=== PATIENT | female | born 1945 | race African-American/Black ===

== ENCOUNTER 2022-04-24 07:10 | Inpatient (IN) | payer BC, MEDICAID ==
[~2022-04-24] VITALS: Ht 157.5 cm; Wt 75.3 kg
[2022-04-24] MEDS ORDERED: MORPHINE SULFATE 4 MG/ML CPJ (NOT FOR IM USE) IV STA (08:11)
[2022-04-24] MEDS ORDERED: ONDANSETRON HCL 4MG/2ML INJ IV STA (08:11)
[2022-04-24] MEDS ORDERED: SODIUM CHLORIDE 0.9% 1,000 ML IV ONE (08:15)
[2022-04-24 09:26] LABS: CHLORIDE 110 mEq/L (98-107)
[2022-04-24 09:35] LABS: BASOPHILS % 0.6 % (0.0-2.0); EOSINOPHILS % 0.9 % (0.0-5.0); HEMATOCRIT. 39.8 % (36.0-48.0); HEMOGLOBIN. 12.8 g/dL (12.0-16.0); LYMPHOCYTES % 34.1 % (20.0-50.0); MEAN CORPUSCULAR HEMOGLOBIN 30.5 pg (28.0-32.0); MEAN CORPUSCULAR VOLUME 94.5 fL (81.0-99.0); MEAN PLATELET VOLUME 8.6 fl (7.4-10.4); MONOCYTES % 8.8 % (2.0-8.0); NEUTROPHILS % 55.6 % (40.0-76.0); PLATELET 234 x1000/uL (130-400); RED BLOOD CELL COUNT 4.22 mill/uL (4.2-5.4)
[2022-04-24] MEDS ORDERED: ONDANSETRON HCL 4MG/2ML INJ IV SCH (10:40)
[2022-04-24] MEDS: MORPHINE SULFATE 4 MG/ML CPJ (NOT FOR IM USE) IV SCH ×2 (10:56→12:06)
[2022-04-24] MEDS ORDERED: POLYETHYLENE GLYCOL 3350 (17GM) 1 DOSE PACK PO ONE (11:45)
[2022-04-24] MEDS ORDERED: CEFTRIAXONE 1 G PREMIX 50 ML IV ONE (11:45)
[2022-04-24 12:48] LABS: CLARITY URINE CLOUDY (CLEAR); COLOR URINE YELLOW (YELLOW); KETONES URINE NEGATIVE (NEGATIVE); LEUKOCYTE ESTERASE URINE TRACE (NEGATIVE); NITRITE URINE NEGATIVE (NEGATIVE); OCCULT BLOOD URINE NEGATIVE (NEGATIVE); PROTEIN URINE NEGATIVE (NEGATIVE); SPECIFIC GRAVITY URINE 1.023 (1.005-1.030)
[2022-04-24 16:30] VITALS: BP 184/92
[2022-04-24] MEDS ORDERED: LACTULOSE 20G/30ML UDC PO ONE (17:30)
[2022-04-24] MEDS ORDERED: ONDANSETRON HCL 4MG/2ML INJ IV PRN (17:30)
[2022-04-24] MEDS: CLONIDINE 0.1MG TABLET PO PRN (18:10)
[2022-04-24] MEDS: ACETAMINOPHEN 325MG TABLET PO PRN ×2 (18:10→23:58)
[2022-04-24 20:00] VITALS: BP 119/73
[2022-04-24] MEDS: BENAZEPRIL 10MG TABLET PO SCH (20:44)
[2022-04-25] VITALS: BP 176/89
[2022-04-25] MEDS: CLONIDINE 0.1MG TABLET PO PRN (03:40)
[2022-04-25 04:00] VITALS: BP 201/106
[2022-04-25] MEDS ORDERED: BENA-8 PO (04:41)
[2022-04-25] MEDS ORDERED: CLON1PAT10 TP (04:41)
[2022-04-25] MEDS ORDERED: METO-396 PO (04:41)
[2022-04-25] MEDS ORDERED: HYDRALAZINE 20MG/ML VIAL IV PRN (04:45)
[2022-04-25 08:00] VITALS: BP 153/88
[2022-04-25] MEDS ORDERED: METOPROLOL SUCCINATE 50MG ER TABLET PO SCH (09:00)
[2022-04-25] MEDS: BENAZEPRIL 10MG TABLET PO SCH (09:35)
[2022-04-25] MEDS ORDERED: HYDRALAZINE HCL 50MG TABLET PO NR (11:45)
[2022-04-25 12:00] VITALS: BP 167/85
[2022-04-25] MEDS: ACETAMINOPHEN 325MG TABLET PO PRN (14:34)
[2022-04-25 16:00] VITALS: BP 120/66
[2022-04-25] MEDS ORDERED: ENOXAPARIN 40MG/0.4ML SYR SUBCUT SCH (17:00)
[2022-04-25] MEDS: DOCUSATE SODIUM 100MG CAPSULE PO SCH (18:14)
[2022-04-25 20:00] VITALS: BP 129/81
[2022-04-25] MEDS: HYDRALAZINE HCL 50MG TABLET PO SCH (20:50)
[2022-04-25] MEDS: METOPROLOL TARTRATE 50MG TABLET PO SCH (20:50)
[2022-04-25] MEDS ORDERED: HYDRALAZINE HCL 100MG TABLET PO SCH (21:00)
[2022-04-26] VITALS: BP 118/60
[2022-04-26] MEDS: ACETAMINOPHEN 325MG TABLET PO PRN ×2 (01:09→11:16)
[2022-04-26 04:00] VITALS: BP 189/102
[2022-04-26] MEDS: CLONIDINE 0.1MG TABLET PO PRN ×2 (04:54→12:30)
[2022-04-26 06:39] LABS: PROTHROMBIN TIME 10.4 sec (9.6-11.0)
[2022-04-26 07:44] LABS: VITAMIN B12 SERUM 353 pg/mL (211-911)
[2022-04-26 08:00] VITALS: BP 163/103
[2022-04-26] MEDS: DOCUSATE SODIUM 100MG CAPSULE PO SCH ×2 (09:36→18:07)
[2022-04-26] MEDS: HYDRALAZINE HCL 50MG TABLET PO SCH ×2 (09:36→20:31)
[2022-04-26] MEDS: METOPROLOL TARTRATE 50MG TABLET PO SCH ×2 (09:37→20:31)
[2022-04-26] MEDS: POLYETHYLENE GLYCOL 3350 (17GM) 1 DOSE PACK PO SCH (09:43)
[2022-04-26] MEDS: BENAZEPRIL 10MG TABLET PO SCH (09:43)
[2022-04-26] MEDS ORDERED: HYDR-4001 MT (11:28)
[2022-04-26] MEDS ORDERED: NALOXONE HCL 0.4MG/ML VIAL IV PRN (11:45)
[2022-04-26 12:00] VITALS: BP 176/105
[2022-04-26] MEDS: HYDROCODONE/ACETAMINOPHEN 5/325MG TABLET PO PRN ×2 (12:26→18:06)
[2022-04-26] MEDS ORDERED: SODIUM BICARBONATE 4% (2.4MEQ) 5ML VIAL IV ONE (13:17)
[2022-04-26] MEDS ORDERED: LIDOCAINE HCL 1% 30ML VIAL (10MG/ML) ONE (13:18)
[2022-04-26 16:00] VITALS: BP 150/70
[2022-04-26] MEDS: CYANOCOBALAMIN 1000MCG/ML VIAL IM SCH (18:06)
[2022-04-26 20:00] VITALS: BP 127/69
[2022-04-27] VITALS: BP 127/78
[2022-04-27] MEDS: HYDROCODONE/ACETAMINOPHEN 5/325MG TABLET PO PRN (01:54)
[2022-04-27 04:00] VITALS: BP 184/102
[2022-04-27] MEDS: CLONIDINE 0.1MG TABLET PO PRN (04:55)
[2022-04-27] MEDS: ACETAMINOPHEN 325MG TABLET PO PRN (05:58)
[2022-04-27 07:54] VITALS: BP 190/90
[2022-04-27] MEDS: POLYETHYLENE GLYCOL 3350 (17GM) 1 DOSE PACK PO SCH (08:27)
[2022-04-27] MEDS: CYANOCOBALAMIN 1000MCG/ML VIAL IM SCH (08:27)
[2022-04-27] MEDS: METOPROLOL TARTRATE 50MG TABLET PO SCH (08:27)
[2022-04-27] MEDS: DOCUSATE SODIUM 100MG CAPSULE PO SCH (08:27)
[2022-04-27] MEDS: BENAZEPRIL 10MG TABLET PO SCH (08:28)
[2022-04-27] MEDS: HYDRALAZINE HCL 50MG TABLET PO SCH (08:28)
[2022-04-27 09:31] VITALS: BP 144/69
== END 2022-04-27 11:22 | disposition home health service (06) | DRG 565 ==
LOC: ER 07:10 → MICUSO 14:29 → EDBEDREQSVC 14:35 → EDBEDREQTM 14:35 → EDBEDREQ 14:35 → ENRESERV 14:48 → 7WST 16:15
PROVIDERS: ADMIT Internal Medicine; ATTEND Internal Medicine
PROC: 0S9C3ZZ Drainage of Right Knee Joint, Percutaneous Approach (ICD-10-PCS; principal; 2022-04-26)
DX: M25.461 Effusion, right knee (principal); E44.1 Mild protein-calorie malnutrition; K56.7 Ileus, unspecified; G62.9 Polyneuropathy, unspecified; K59.00 Constipation, unspecified; G89.29 Other chronic pain; R53.81 Other malaise; E66.9 Obesity, unspecified; Z20.822 Contact with and (suspected) exposure to COVID-19; I10 Essential (primary) hypertension; M17.11 Unilateral primary osteoarthritis, right knee; Z82.49 Family history of ischemic heart disease and other diseases of the circulatory system; Z91.81 History of falling; Z68.30 Body mass index [BMI] 30.0-30.9, adult
CPT/HCPCS: 20611; 36415; 71045; 72192; 73560; 73700; 74018; 74176; 80053; 81003; 82140; 82306; 82607; 82746; 83880; 84443; 84484; 85025; 87426; 93005; 93970; 97162; 97530; 99285; J0360; J0696; J1650; J2270; J2405; J3420; J3490; J7030